=== PATIENT | female | born 1995 | race African-American/Black ===

== ENCOUNTER 2017-07-29 11:03 | Emergency (ER) | payer BC ==
[2017-07-29 11:07] VITALS: BP 121/79; BMI 36.6
--- NOTE | 2017-07-29 11:37 | DR.GENAD ---
HPI - PCP Primary Care Physician: zahira - HPI Comment HPI Comment: HISTORY BELOW. - Complaint/Symptoms Chief Complaint Doctors Comments: VAGINAL PAIN AND RASH AND DYSURIA, EXPOSE TO STD. NO FEVER. USE YEAST MED WITHOUT RELIEF. Chief Complaint:: patient stated for the past couple of days she has been having vaginal pain and burning when she urinates. - Nurses notes reviewed Nurses Notes Review: Yes - Source History Provided: Patient - Mode of Arrival Mode of Arrival: Ambulatory - Timing Onset of Chief Complaint: 07/27/17 Came on: Suddenly - Duration Duration: Constant Duration: Days - Severity Severity: Moderate PMH - PMH Past Medical History: Yes Past Medical History: Diabetes Past Surgical History: Yes Past Surgical History Comment: lymp nodes removed from under chin - Family History History of Family Medical Conditions: No - Social History Does patient currently use any type of tobacco product: No Have you used tobacco products in the last 12 months: No Type of Tobacco Use: None Alcohol Use: None Do you use any recreational Drugs:: No Lives With: Family Lives Where: Home - infectious screening In the last 2 months have you had wt loss of >10#?: NO Have you had fever, night sweats or hemotysis?: No Have you traveled outside the country in the last 6 months?: No Isolation: Standard ROS - Review of Systems Constitutional: No Symptoms Reported Eyes: No Symptoms Reported ENTM: No Symptoms Reported Respiratoy: No Symptoms Reported Cardiovascular: No Symptoms Reported Gastrointestinal/Abdominal: No Symptoms Reported Genitourinary: Pain, Other (VAGINAL RASH AND PAIN.) Neurological: No Symptoms Reported Musculoskeletal: No Symptoms Reported Integumentary: No Symptoms Reported Hematologic/Lymphatic: No Symptoms Reported Endocrine: No Symptoms Reported All Other Systems: Reviewed and Negative PE - Vital Signs Vitals: Temperature 98.5 F Pulse Rate 121 Respiratory Rate 16 Blood Pressure 121/79 O2 Sat by Pulse Oximetry 100 - General Limitations: No Limitations General Appearance: Alert - Head Head Exam: Normal Inspection - Eyes Eye exam: Normal Appearance - ENT ENT Exam: Normal External Ear Exam External Ear Exam: Normal External Inspection TM/Canal Exam: Bilateral Normal Mouth Exam: Normal Inspection Throat Exam: Normal Inspection - Neck Neck Exam: Normal Inspection - Chest Chest Inspection: Symmetric Chest Wall Rise - Respiratory Respiratory Exam: Normal Lung Sounds Bilat Respiratory Exam: Bilateral Clear to Auscultation - Cardiovascular Cardiovascular Exam: Regular Rate, Normal Rhythm, Normal Heart Sounds - Abdominal Exam Abdominal Exam: Normal Bowel Sounds, Soft, Tenderness - Extremities Extremities Exam: Normal Inspection, Tenderness - Back Back Exam: Normal Inspection - Neurologic Neurological Exam: Alert, Oriented X3 - Psychiatric Psychiatric Exam: Normal Affect, Normal Mood - Skin Skin Exam: Normal Color MDM - Additional Information Additional Information Obtained From: Family - Differential Diagnosis Differential Diagnosis: VAGINITIS, STD EXPOSURE, UTI Course - Treatment Treatment: SEE ORDERS - Education/Counseling Education/Counseling: Patient, Family, Education Educated On: Treatment, Diagnosis, Needs for Follow Up ROR - Labs Reviewed Laboratory Results Reviewed?: Yes Laboratory: Specimen Type Clean catch urine 07/29/17 11:46 Urine Color Bloody (YELLOW) 07/29/17 11:46 Urine Appearance Cloudy (CLEAR) 07/29/17 11:46 Urine pH 5.0 (5.0 - 8.0) 07/29/17 11:46 Ur Specific [place] 1.025 (1.000-1.030) 07/29/17 11:46 Urine Protein 3+ (NEGATIVE) 07/29/17 11:46 Urine Glucose (UA) 4+ (NEGATIVE) 07/29/17 11:46 Urine Ketones 3+ (NEGATIVE) 07/29/17 11:46 Urine Occult Blood 5+ (NEGATIVE) 07/29/17 11:46 Urine Nitrite Positive (NEGATIVE) 07/29/17 11:46 Urine Bilirubin 1+ (NEGATIVE) 07/29/17 11:46 Urine Urobilinogen 1+ (NORMAL) 07/29/17 11:46 Ur Leukocyte Esterase 3+ (NEGATIVE) 07/29/17 11:46 Urine RBC Tntc /HPF (NEGATIVE) 07/29/17 11:46 Urine WBC 1015 /HPF (NEGATIVE) 07/29/17 11:46 Ur Squamous Epith Cells Moderate /HPF (NEGATIVE) 07/29/17 11:46 Urine Bacteria Trace /HPF (NEGATIVE) 07/29/17 11:46 Ur Culture Indicated? Yes/culture set up 07/29/17 11:46 Ur C. trach DNA (PCR) Not detected (NOT DETECT) 07/29/17 11:46 U N.gonorrhoeae DNA PCR Not detected (NOT DETECT) 07/29/17 11:46 - Diagnosis Discharge Problem: UTI (urinary tract infection), STD exposure, Vaginitis - Discharge Plan Disposition: 01 HOME, SELF-CARE Condition: Stable Prescriptions: Acetaminophen with Codeine [Tylenol/Codeine #3 300-30 mg] 1 tab PO Q4-6H PRN # 15 tab PRN Reason: Pain Acyclovir [Zovirax] 800 mg PO 5XD #40 tab Ciprofloxacin HCl [CIPRO 500 MG TAB *] 500 mg PO Q12H #20 tab - Follow ups/Referrals Follow ups/Referrals: N[facility],None [Primary Care Provider] - 3 days - Instructions Instructions: Vaginitis, [id number], Urinary Tract Infection, Adult, Easy-to- Read Additional Instructions: RETURN TO ED IF WORSE.
[2017-07-29 12:16] LABS: BILIRUBIN,URINE 1+ (NEGATIVE); BLOOD/HEMOGLOBIN,URINE 5+ (NEGATIVE); GLUCOSE, URINE 4+ (NEGATIVE); KETONES,URINE 3+ (NEGATIVE); LEUKOCYTE ESTERASE ,URINE 3+ (NEGATIVE); NITRITES,URINE POSITIVE (NEGATIVE); PROTEIN,URINE 3+ (NEGATIVE); UROBILINOGEN,URINE 1+ (NORMAL)
[2017-07-29 12:31] LABS: APPEARANCE,URINE CLOUDY (CLEAR); BACTERIA,URINE TRACE /HPF (NEGATIVE); COLOR,URINE BLOODY (YELLOW); RBC,URINE TNTC /HPF (NEGATIVE); SQUAMOUS EPITHELIAL CELL,UR MODERATE /HPF (NEGATIVE)
[2017-07-29] MEDS ORDERED: ZITHROMAX TAB 250 MG PO ONE ×2 (13:42→15:19)
[2017-07-29] MEDS ORDERED: ROCEPHIN VIAL 1 GM IM ONE (13:42)
[2017-07-29] MEDS ORDERED: DIFLUCAN PO ONE (14:19)
[2017-07-29 14:54] LABS: CHLAMYDIA TRACH URINE NOT DETECTED (NOT DETECT)
[2017-07-29] MEDS ORDERED: DIFLUCAN ONE (15:19)
[2017-07-29] MEDS ORDERED: ROCEPHIN VIAL 1 GM ONE (15:19)
[2017-08-04 06:56] LABS: VIRAL CULTURE FINAL POSITIVE
== END 2017-07-29 15:35 | disposition home or self-care (01) ==
LOC: ER 11:11
DX: N76.0 Acute vaginitis (principal); Z20.2 Contact with and (suspected) exposure to infections with a predominantly sexual mode of transmission; N39.0 Urinary tract infection, site not specified; B95.1 Streptococcus, group B, as the cause of diseases classified elsewhere
CPT/HCPCS: 81001; 87086; 87088; 87186; 87252; 87253; 87491; 87591; 96372; 99282; 99283; Q0144; J0696

== ENCOUNTER 2017-08-02 11:12 | Emergency (ER) | payer BC ==
[2017-08-02 11:16] VITALS: BP 128/79; BMI 36.6
[2017-08-02 12:19] LABS: BILIRUBIN,URINE NEGATIVE (NEGATIVE); BLOOD/HEMOGLOBIN,URINE 5+ (NEGATIVE); GLUCOSE, URINE 4+ (NEGATIVE); KETONES,URINE 3+ (NEGATIVE); LEUKOCYTE ESTERASE ,URINE 3+ (NEGATIVE); NITRITES,URINE NEGATIVE (NEGATIVE); PROTEIN,URINE 1+ (NEGATIVE); UROBILINOGEN,URINE NORMAL (NORMAL)
[2017-08-02 12:29] LABS: APPEARANCE,URINE HAZY (CLEAR); BACTERIA,URINE 1+ /HPF (NEGATIVE); COLOR,URINE YELLOW (YELLOW); SQUAMOUS EPITHELIAL CELL,UR FEW /HPF (NEGATIVE)
[2017-08-02] MEDS ORDERED: TORADOL 60 MG VIAL IM ONE (13:04)
[2017-08-02] MEDS ORDERED: TORADOL 60 MG VIAL ONE (13:06)
--- NOTE | 2017-08-02 13:08 | DR.GENAD ---
HPI - PCP Primary Care Physician: ANDREEA LAUREN - Complaint/Symptoms Chief Complaint Doctors Comments: Patient states she has been on medicines for UTI but nothing is helping. She is burning when she urinates. States she has a rash in her groin and she is taking medicine for Herpes and yeast infection for the past 3-4 days and is still burning. States she is a diabetic and she does not check her glucose. Her mother states she has not been complaint with her medicines. States she went to [facility] and the results from her Herpes was not in and she was told she could stop the acyclovir if her test was negataive. She denies fever or chills, hematuria or diarrhea. she has been taking her pain pills but continues to hurt when she urinate. Chief Complaint:: PATIENT HAS A BAD UTI AND HAS BEEN ON MEDICATIONS BUT IT SEEMS LIKE NOTHING IS HELPING. - Nurses notes reviewed Nurses Notes Review: Yes - Source History Provided: Patient - Mode of Arrival Mode of Arrival: Ambulatory - Timing Onset of Chief Complaint: 07/29/17 Came on: Gradually - Duration Duration: Constant How lon Duration: Days - Location Location: pelvic pain - Severity Severity: Moderate - Modifying Factors Worsens:: urinating Improves:: nothing PMH - PMH Past Medical History: Yes Past Medical History: Diabetes Past Surgical History: Yes Surgical History: Other - Family History History of Family Medical Conditions: Yes Family Medical History: [place] - Social History Does patient currently use any type of tobacco product: No Have you used tobacco products in the last 12 months: No Type of Tobacco Use: None Does any household member use tobacco: No Alcohol Use: None Do you use any recreational Drugs:: No Lives With: Family Lives Where: Home - infectious screening In the last 2 months have you had wt loss of >10#?: NO Have you had fever, night sweats or hemotysis?: No Have you traveled outside the country in the last 6 months?: No Isolation: Standard ROS - Review of Systems Constitutional: No Symptoms Reported. negative: See HPI, Chills, Diaphoresis, Fever, Malaise, Weakness, Irritable, Fatigue, Loss of Appetite, Other Eyes: No Symptoms Reported ENTM: No Symptoms Reported Respiratoy: No Symptoms Reported Cardiovascular: No Symptoms Reported. negative: See HPI, Chest Pain, Edema, Palpitations, Syncope, Cyanosis, Skin Mottling, Other Gastrointestinal/Abdominal: No Symptoms Reported Genitourinary: Discharge, Dysuria, Frequency, Pain. negative: No Symptoms Reported, See HPI, Hematuria, Bleeding, Other Neurological: No Symptoms Reported Musculoskeletal: No Symptoms Reported Integumentary: No Symptoms Reported Hematologic/Lymphatic: No Symptoms Reported Endocrine: No Symptoms Reported Psychiatric: No Symptoms Reported PE - Vital Signs Vitals: Pulse Rate 105 Respiratory Rate 20 Blood Pressure 128/79 O2 Sat by Pulse Oximetry 98 - General Limitations: No Limitations General Appearance: Alert, In Distress (mild) - Head Head Exam: Normal Inspection, Atraumatic, Normocephalic - Eyes Eye exam: Normal Appearance, PERRL, EOMI. negative: Scleral Icterus, Conjunctival Injection, Nystagmus, Miosis, Mydrasis, Periorbital Swelling, Periorbital Tenderness, Other - ENT ENT Exam: Normal Exam, Normal Oropharynx, Normal External Ear Exam, Mucous Membranes Moist, TM's Normal Bilaterally External Ear Exam: Normal External Inspection TM/Canal Exam: Bilateral Normal Nose Exam: Normal Nose Exam Mouth Exam: Normal Inspection Throat Exam: Normal Inspection - Neck Neck Exam: Normal Inspection, Full ROM, Trachea Midline - Chest Chest Inspection: Normal Inspection, Symmetric Chest Wall Rise - Respiratory Respiratory Exam: Normal Lung Sounds Bilat. negative: Accessory Muscle Use, Chest Wall Tenderness, Prolonged Expiratory Phase, Respiratory Distress, Stridor , Other Respiratory Exam: Bilateral Clear to Auscultation - Cardiovascular Cardiovascular Exam: Regular Rate, Normal Rhythm, Normal Heart Sounds - Abdominal Exam Abdominal Exam: Normal Inspection, Normal Bowel Sounds, Soft. negative: Distention, Tenderness, Guarding, Rebound, Rigidity, Dimnished Bowel Sounds, Hyperactive Bowel Sounds, Hypoactive Bowel Sounds, Organomegaly, Trauma, Incision, Ascites, Mass, Bruit, Pulsatile Mass, Hernia, Other Abdominal Tenderness: negative: RUQ, RLQ, LUQ, LLQ, Epigastrium, Suprapubic, Diffuse, Mild, Moderate, Severe, Other - Extremities Extremities Exam: Normal Inspection, Full ROM, Normal Capillary Refill. negative: Tenderness, Edema, Joint Swelling, Calf Tenderness, Other - Back Back Exam: Normal Inspection, Full ROM. negative: Tenderness, (R) CVA Tenderness, (L) CVA Tenderness, Muscle Spasm, Paraspinal Tenderness, Vertebral Tenderness, Rashes, (R) Sciatic Notch Tenderness, (L) Sciatic Notch Tendern, (R ) Straight Leg Raise, (L) Straight Leg Raise, Other - Neurologic Neurological Exam: Alert, Oriented X3, CN II-XII Intact, Normal Gait, Reflexes Normal - Psychiatric Psychiatric Exam: Normal Affect, Normal Mood - Skin Skin Exam: Warm, Dry, Intact, Normal Color ROR - Labs Reviewed Laboratory Results Reviewed?: Yes (all labs results reviewed and discussed with patient and mother) Laboratory: POC Glucose (mg/dL) 202 mg/dL (65-99) H 08/02/17 13:01 Specimen Type Clean catch urine 08/02/17 12:08 Urine Color Yellow (YELLOW) 08/02/17 12:08 Urine Appearance Hazy (CLEAR) 08/02/17 12:08 Urine pH 5.0 (5.0 - 8.0) 08/02/17 12:08 Ur Specific [place] 1.020 (1.000-1.030) 08/02/17 12:08 Urine Protein 1+ (NEGATIVE) 08/02/17 12:08 Urine Glucose (UA) 4+ (NEGATIVE) 08/02/17 12:08 Urine Ketones 3+ (NEGATIVE) 08/02/17 12:08 Urine Occult Blood 5+ (NEGATIVE) 08/02/17 12:08 Urine Nitrite Negative (NEGATIVE) 08/02/17 12:08 Urine Bilirubin Negative (NEGATIVE) 08/02/17 12:08 Urine Urobilinogen Normal (NORMAL) 08/02/17 12:08 Ur Leukocyte Esterase 3+ (NEGATIVE) 08/02/17 12:08 Urine RBC 11-25 /HPF (NEGATIVE) 08/02/17 12:08 Urine WBC 20-25 /HPF (NEGATIVE) 08/02/17 12:08 Ur Squamous Epith Cells Few /HPF (NEGATIVE) 08/02/17 12:08 Urine Bacteria 1+ /HPF (NEGATIVE) 08/02/17 12:08 Ur Culture Indicated? Yes/culture set up 08/02/17 12:08 - Diagnosis Discharge Problem: UTI (urinary tract infection), Vaginitis Diabetes mellitus Qualifiers: Diabetes mellitus type: type 2 - Discharge Plan Disposition: HOME, SELF-CARE Condition: Stable Prescriptions: Phenazopyridine HCl [Pyridium] 200 mg PO BID PRN #14 tablet PRN Reason: - Follow ups/Referrals Follow ups/Referrals: CHARLOTTE LAUREN [Primary Care Provider] - 3 days - Instructions Instructions: Vaginitis, [id number], Urinary Tract Infection, Adult, Type 2 Diabetes Mellitus, Adult, [id number]
== END 2017-08-02 13:29 | disposition home or self-care (01) ==
LOC: ER 11:20
DX: N39.0 Urinary tract infection, site not specified (principal); N76.0 Acute vaginitis; E11.9 Type 2 diabetes mellitus without complications
CPT/HCPCS: 81001; 87086; 96372; 99282; 99283; J1885

== ENCOUNTER 2017-08-13 00:12 | Inpatient (IN) | payer BC ==
--- NOTE | 2017-08-13 00:46 | DR.GENAD ---
HPI - PCP Primary Care Physician: MARKO - HPI Comment HPI Comment: WORSE TODAY. - Complaint/Symptoms Chief Complaint Doctors Comments: PAIN AND SWELLING RIGHT LEG TIMES 10 TO 11 DAYS. Chief Complaint:: RLE PAIN, SWELLING FOR LAST 1 1/2 WK Self Treatment fo Chief Complaint: ICE PACKS - Nurses notes reviewed Nurses Notes Review: Yes - Source History Provided: Patient - Mode of Arrival Mode of Arrival: Ambulatory - Timing Onset of Chief Complaint: 08/03/17 Came on: Suddenly - Duration Duration: Constant Duration: Days - Severity Severity: Moderate PMH - PMH Past Medical History: Yes Past Medical History: Diabetes Past Surgical History: No Surgical History: Other - Family History History of Family Medical Conditions: Yes Family Medical History: [place] - Social History Does patient currently use any type of tobacco product: No Have you used tobacco products in the last 12 months: No Type of Tobacco Use: None Does any household member use tobacco: No Alcohol Use: None Do you use any recreational Drugs:: No Lives With: Family Lives Where: Home - infectious screening Have you traveled outside the country in the last 6 months?: No Isolation: Standard ROS - Review of Systems Constitutional: No Symptoms Reported Eyes: No Symptoms Reported ENTM: No Symptoms Reported Respiratoy: No Symptoms Reported Cardiovascular: Edema (RT LEG/CALF) Gastrointestinal/Abdominal: No Symptoms Reported Genitourinary: No Symptoms Reported Neurological: No Symptoms Reported Musculoskeletal: Right, Leg (CALF) Integumentary: No Symptoms Reported Hematologic/Lymphatic: No Symptoms Reported Endocrine: No Symptoms Reported All Other Systems: Reviewed and Negative PE - Vital Signs Vitals: Temperature 97.6 F Pulse Rate 92 Respiratory Rate 16 Blood Pressure 115/81 O2 Sat by Pulse Oximetry 97 - General Limitations: No Limitations General Appearance: Alert - Head Head Exam: Normal Inspection - Eyes Eye exam: Normal Appearance - ENT ENT Exam: Normal External Ear Exam External Ear Exam: Normal External Inspection TM/Canal Exam: Bilateral Normal Nose Exam: Normal Nose Exam Mouth Exam: Normal Inspection Throat Exam: Normal Inspection - Neck Neck Exam: Trachea Midline - Chest Chest Inspection: Symmetric Chest Wall Rise - Respiratory Respiratory Exam: Normal Lung Sounds Bilat, Chest Wall Tenderness Respiratory Exam: Bilateral Clear to Auscultation - Cardiovascular Cardiovascular Exam: Regular Rate, Normal Rhythm, Normal Heart Sounds - Abdominal Exam Abdominal Exam: Normal Bowel Sounds, Soft, Tenderness - Extremities Extremities Exam: Tenderness (LT CALF SWOLLEN AND TENDER.) - Back Back Exam: Normal Inspection - Neurologic Neurological Exam: Alert, Oriented X3, CN II-XII Intact - Psychiatric Psychiatric Exam: Normal Affect, Normal Mood - Skin Skin Exam: Normal Color MDM - Differential Diagnosis Differential Diagnosis: DVT, PULMONARY EMBOLISM, MUSCULOSKELETAL PAIN, BAKERS CYST Course - Treatment Treatment: SEE ORDERS. HEPARIN DRIP PER PROTOCOL. XARELTO PO IN ED. - Education/Counseling Education/Counseling: Patient, Education Educated On: Treatment, Diagnosis, Needs for Follow Up ROR - Labs Reviewed Laboratory Results Reviewed?: Yes Result Diagrams: 08/14/17 05:20 08/14/17 05:20 Laboratory: WBC 18.2 X10^3/uL (3.6-10.0) H 08/13/17 00:53 RBC 7.12 X10^6/uL (3.5-5.4) H 08/13/17 00:53 Hgb 12.5 g/dL (12.0-16.0) 08/13/17 00:53 Hct 38.6 % (36.0-47.0) 08/13/17 00:53 MCV 54.2 fL (80.0-100.0) L 08/13/17 00:53 MCH 17.5 pg (27.0-34.0) L 08/13/17 00:53 MCHC 32.3 g/dL (33.0-35.0) L 08/13/17 00:53 RDW 19.1 % (11.6-16.5) H 08/13/17 00:53 Plt Count 324 X10^3/uL (150.0-450.0) 08/13/17 00:53 Plt Count Comment Adequate (ADEQUATE) 08/13/17 00:53 MPV 8.8 fL (7.4-11.0) 08/13/17 00:53 Neut % 66.0 % (42.0-75.0) 08/13/17 00:53 Lymph % 24.4 % (21.0-51.0) 08/13/17 00:53 [place] % 7.8 % (0.0-13.0) 08/13/17 00:53 Eos % 1.3 % (0.9-2.9) 08/13/17 00:53 Baso % 0.5 % (0.2-1.0) 08/13/17 00:53 Neut # 12.0 x10^3/uL (2.2-4.8) H 08/13/17 00:53 Lymph # 4.4 X10^3/uL (1.3-2.9) H 08/13/17 00:53 [place] # 1.4 x10^3/uL (0.3-0.8) H 08/13/17 00:53 Eos # 0.2 x10^3/uL (0.0-0.2) 08/13/17 00:53 Baso # 0.1 X10^3/uL (0.0-0.1) 08/13/17 00:53 Absolute Nucleated RBC 0.0 /100WBC 08/13/17 00:53 Plt Morphology Comment Normal (NORMAL) 08/13/17 00:53 RBC Morphology Abnormal (NORMAL) A 08/13/17 00:53 Hypochromasia 2+ A 08/13/17 00:53 Anisocytosis 2+ A 08/13/17 00:53 Microcytosis 2+ A 08/13/17 00:53 Target Cells Noted 08/13/17 00:53 D-Dimer > 5000 ng/mL (0-400) H* 08/13/17 00:53 - XRAY XRAY Interpreted by: Radiologist XRAY Findings: REPORT DISCUSS WITH PATIENT. - Diagnosis Discharge Problem: Acute deep vein thrombosis (DVT) of distal end of left lower extremity Pulmonary embolism Qualifiers: Pulmonary embolism type: other Chronicity: acute Acute cor pulmonale presence: without acute cor pulmonale Qualified Code(s): I26.99 - Other pulmonary embolism without acute cor pulmonale - Discharge Plan Disposition: 09 ADMITTED INPATIENT Condition: Stable - Follow ups/Referrals - Instructions
[2017-08-13 01:02] LABS: BASOPHILS # (AUTO) 0.1 X10^3/uL (0.0-0.1); BASOPHILS % (AUTO) 0.5 % (0.2-1.0); EOSINOPHILS # (AUTO) 0.2 x10^3/uL (0.0-0.2); EOSINOPHILS % (AUTO) 1.3 % (0.9-2.9); HEMATOCRIT 38.6 % (36.0-47.0); HEMOGLOBIN 12.5 g/dL (12.0-16.0); LYMPHOCYTES # (AUTO) 4.4 X10^3/uL (1.3-2.9); LYMPHOCYTES % (AUTO) 24.4 % (21.0-51.0); MEAN CORPUSCULAR HEMOGLOBIN 17.5 pg (27.0-34.0); MEAN CORPUSCULAR HGB CONC 32.3 g/dL (33.0-35.0); MEAN CORPUSCULAR VOLUME 54.2 fL (80.0-100.0); MEAN PLATELET VOLUME 8.8 fL (7.4-11.0); MONOCYTES # (AUTO) 1.4 x10^3/uL (0.3-0.8); MONOCYTES % (AUTO) 7.8 % (0.0-13.0); PLATELET COUNT 324 X10^3/uL (150.0-450.0); RED BLOOD COUNT 7.12 X10^6/uL (3.5-5.4); RED CELL DISTRIBUTION WIDTH 19.1 % (11.6-16.5); WHITE BLOOD COUNT 18.2 X10^3/uL (3.6-10.0)
[2017-08-13 01:11] LABS: ANISOCYTOSIS 2+; HYPOCHROMASIA 2+; MICROCYTOSIS 2+; PLATELET MORPHOLOGY COMMENT NORMAL (NORMAL); TARGET CELLS NOTED
[2017-08-13] MEDS ORDERED: NS 100 ML IV 100 ML IV ONE (01:39)
--- NOTE | 2017-08-13 02:30 | CT ---
EXAM: CTA CHEST WITH CONTRAST INDICATION: Elevated D-dimer COMPARISION: No priors for comparison TECHNIQUE: Spiral CT of the chest was performed with and without contrast. 3D reconstructions in the axial and p camille-coronal planes were obtained. The patient received intravenous contrast without adverse reaction . FINDINGS: The heart size is normal. There is a small pulmonary emboli identified in the central division of the right main pulmonary artery which extends into the lower lobe branches. The filling defect is nonocc lusive which could indicate a chronic pulmonary emboli. No left-sided filling defects are identified. . The aorta is normal in caliber. No evidence of dissection or aneurysm. No mediastinal or hilar mass or adenopathy. The lungs are clear. No evidence of bullous disease or pulmonary fibrosis. No lung mass, consolidatio n, or suspicious pulmonary nodule. No pleural effusion or pneumothorax identified. The regional skele ton is intact. IMPRESSION: There is a small nonocclusive pulmonary emboli at the central bifurcation of the right main pulmonary artery which extends into the lower lobe branches. The filling defect is nonocclusive which may be a ssociated with chronic pulmonary emboli. Reported By:
[2017-08-13] MEDS: XARELTO PO SCH ×3 (02:52→20:27)
[2017-08-13] MEDS ORDERED: PHARMACY CONSULT - DOSE _____ XX SCH (03:00)
[2017-08-13] MEDS ORDERED: XARELTO PO NR (03:00)
[2017-08-13] MEDS ORDERED: HEPARIN SODIUM INJ 5000 UNITS ONE (03:15)
[2017-08-13] MEDS ORDERED: MORPHINE SULFATE INJ 4 MG IVP PRN (03:16)
[2017-08-13] MEDS ORDERED: ZOFRAN INJ 4 MG VIAL IVP PRN (03:16)
[2017-08-13] MEDS: HEPARIN SODIUM IN D5W 25,000 UNITS/500 ML BAG IV PRN (03:54)
[2017-08-13] MEDS: NS 1000 ML 1,000 ML IV SCH (04:40)
[2017-08-13 05:03] VITALS: BMI 34.0
[2017-08-13 05:05] LABS: ERYTHROCYTE SEDIMENTATION RATE 21 MM/HOUR (0-20)
[2017-08-13 06:54] LABS: BILIRUBIN,URINE NEGATIVE (NEGATIVE); BLOOD/HEMOGLOBIN,URINE 4+ (NEGATIVE); GLUCOSE, URINE 4+ (NEGATIVE); KETONES,URINE NEGATIVE (NEGATIVE); LEUKOCYTE ESTERASE ,URINE NEGATIVE (NEGATIVE); NITRITES,URINE NEGATIVE (NEGATIVE); PROTEIN,URINE 1+ (NEGATIVE); UROBILINOGEN,URINE NORMAL (NORMAL)
[2017-08-13 07:13] LABS: APPEARANCE,URINE HAZY (CLEAR); BACTERIA,URINE TRACE /HPF (NEGATIVE); COLOR,URINE YELLOW (YELLOW); SQUAMOUS EPITHELIAL CELL,UR FEW /HPF (NEGATIVE)
[2017-08-13] MEDS: SNACK - Diabetic Appropriate PO SCH ×2 (08:29→20:27)
[2017-08-13 09:11] LABS: ALANINE AMINOTRANSFERASE 27 Units/L (12-78); ALBUMIN 2.8 g/dL (3.4-5.0); ALKALINE PHOSPHATASE 106 Units/L (46-116); ASPARTATE AMINO TRANSFERASE 32 Units/L (15-37); BLOOD UREA NITROGEN 7 mg/dL (7-18); CALCIUM 8.9 mg/dL (8.5-10.1); CARBON DIOXIDE 23.9 mmol/L (21-32); CHLORIDE 101 mmol/L (98-107); COR CA(FOR HYPOALB) 9.9 mg/dL (8.5-10.1); COR NA(FOR HYPERGLY) 142 mmol/L (136-145); CREATININE 0.88 mg/dL (0.55-1.02); SODIUM 134 mmol/L (136-145); TOTAL PROTEIN 7.4 g/dL (6.4-8.2); eGFR BLACK RACES > 60 (>60); eGFR NON BLACK RACES > 60 (>60)
--- NOTE | 2017-08-13 09:45 | VAS ---
HISTORY: Elevated D-dimer and right lower extremity pain and edema Study: Doppler ultrasound of the deep veins of the right lower extremity Comparison: None TECHNIQUE: Multiple mcdowell scale and color flow Doppler images of the deep venous system were obtained of the Right lower extremity. FINDINGS: The deep venous system of the right lower extremity was evaluated from the level of the common femora l vein through the popliteal vein. Normal color flow and augmentation can be observed. In addition, normal compression is seen throughout the deep venous system. IMPRESSION: 1. Negative for DVT. Reported By:
--- NOTE | 2017-08-13 10:29 | DR.H&P ---
H&P - History & Physical for Day of: H&P Date: 08/13/17 - Chief Complaint Chief Complaint: RIGHT LEG PAIN, SHORT OF BREATH - Allergies Allergies/Adverse Reactions: Allergies Allergy/AdvReac Type Severity Reaction Status Date / Time No Known Drug Allergies Allergy Verified 08/13/17 00:21 - History of Present Illness History of Present Illness: A 22 YEAR OLD PATIENT OF [facility] WHO PRESENTED TO THE EMERGENCY ROOM WITH COMPLAINTS OF RIGHT LEG PAIN AND SWELLING. PATIENT REPORTS THAT SYMPTOMS BEGAN 10 DAYS AGO. ASSOCIATED SYMPTOMS ARE SHORTNESS OF BREATH. ON EXAMINATION, WERE NOTED CLEAR TO AUSCULTATION. ABDOMEN SOFT, ROUND, AND NON-TENDER WITH NORMAL BOWEL SOUNDS NOTED IN ALL QUADRANTS. RIGHT LOWER LEG/CALF IS NOTED WITH EDEMA AND TENDERNESS. PATIENT REPORTS USING ICE PACKS AT HOME FOR PAIN. SHE DENIES RELIEF OF PAIN. ON ARRIVAL, VITAL SIGNS WERE 97.6-92-16-97%-115/81. LABS AND CHEST CT WERE OBTAINED. ABNORMAL LAB VALUES INCLUDE THE FOLLOWING: WBC 18.2, RBC 7.12, D-DIMER >5000, ESR 21, CRP 16.80, SODIUM 134, GLUCOSE 428, ALBUMIN 2.8, GLOBULIN 4.6. URINALYSIS REPORTED RBC 10-12, WBC 3-5, OCCULT BLOOD 4+, URINE GLUCOSE 4+, URINE PROTEIN 1+. A HYPER COAG PANEL WAS DRAWN AND SENT OUT. A CTA OF THE CHEST WAS OBTAINED AND REPORTED A SMALL NONOCCLUSIVE PLUMONARY EMBOLI AT THE CENTRAL BIFURCATION OF THE RIGHT MAIN PULMONARY ARTERY WHICH EXTENDS TO THE LOWER LOBE BRANCHES. THE FILLING DEFECT IS NONOCCLUSIVE WHICH MAY BE ASSOCIATED WITH CHRONIC PULMONARY EMBOLI. LUNGS ARE CLEAR. PATIENT WAS STARTED ON A HEPARIN DRIP, XARELTO 15MG PO BID, AND NS AT [facility] IN THE ER. WE ADMITTED HER FOR FURTHER TREATMENT AND EVALUATION. WE PLANNED TO FOLLOW UP WITH LABS AND A VENOUS DOPPLER. WE WILL CONTINUE TO MONITOR PATIENT. - Past Medical History Past Medical History: Anemia, Asthma, Diabetes, Sleep Apnea - Past Surgical History Surgical History: Other Additional Surgical History: LYMPH NODE REMOVED FROM UNDER CHIN - Family History Family Medical History: Diabetes Mellitus, [place], Hypertension - Social History Does patient currently use any type of tobacco product: No Have you used tobacco products in the last 12 months: No Type of Tobacco Use: None Does any household member use tobacco: No Alcohol Use: None Drug Use: None - Medications Home Medications: Doxycycline Hyclate [Doxycycline Hyclate] 1 cap PO BID 08/13/17 [History Confirmed 08/13/17] - Review of Systems Constitutional: No Symptoms Reported Eyes: No Symptoms Reported ENT: No Symptoms Reported Respiratory: Shortness of Breath Cardiovascular: Edema (RIGHT LEG/CALF ) Gastrointestinal: No Symptoms Reported Genitourinary: No Symptoms Reported Musculoskeletal: Leg Pain (RIGHT LEG PAIN AND EDEMA ) Skin: No Symptoms Reported Neurological: No Symptoms Reported - Physical Exam Vital Signs: Temperature 97.7 F Pulse Rate [Apical] 106 Pulse Rate 92 Respiratory Rate 24 Blood Pressure [Left Arm] 95/53 Blood Pressure 115/81 O2 Sat by Pulse Oximetry 100 Oriented: Normal Eyes: Normal Ear: Normal Nose: Normal Throat: Normal Respiratory: Clear Throughout Cardiovascular: Edema (RIGHT LEG ) : Normal Auscultation: Bowel Sounds: Normal Palpation: Normal Tenderness: Normal Skin: Normal Musculoskeletal: Normal Psychiatric: Normal Mood Description: Calm Affect: Normal Speech Pattern: Clear - Assessment/Plan (1) Pulmonary embolism Qualifiers: Pulmonary embolism type: other Chronicity: acute Acute cor pulmonale presence: without acute cor pulmonale Qualified Code(s): I26.99 - Other pulmonary embolism without acute cor pulmonale Status: Acute Plan: HEPARIN DRIP, XARELTO 15MG PO BID, CONTINUE TO MONITOR (2) Acute pain of right lower extremity Status: Acute Plan: VENOUS DOPPLER, CONTINUE TO MONITOR
[2017-08-13] MEDS: LEVAQUIN PREMIX IV 500 MG 500 MG/100 ML BAG IV SCH (12:56)
[2017-08-13] MEDS: HumuLIN R SUBCUT PRN ×3 (12:57→20:25)
[2017-08-13] MEDS ORDERED: SNACK - Diabetic Appropriate PO SCH (20:00)
[2017-08-13] MEDS ORDERED: XARELTO PO SCH (21:00)
[2017-08-14] MEDS: HEPARIN SODIUM IN D5W 25,000 UNITS/500 ML BAG IV PRN (05:42)
[2017-08-14 06:08] LABS: BASOPHILS # (AUTO) 0.1 X10^3/uL (0.0-0.1); BASOPHILS % (AUTO) 0.7 % (0.2-1.0); EOSINOPHILS # (AUTO) 0.3 x10^3/uL (0.0-0.2); EOSINOPHILS % (AUTO) 1.9 % (0.9-2.9); HEMATOCRIT 36.1 % (36.0-47.0); HEMOGLOBIN 11.4 g/dL (12.0-16.0); LYMPHOCYTES # (AUTO) 5.3 X10^3/uL (1.3-2.9); LYMPHOCYTES % (AUTO) 34.2 % (21.0-51.0); MEAN CORPUSCULAR HEMOGLOBIN 17.4 pg (27.0-34.0); MEAN CORPUSCULAR HGB CONC 31.6 g/dL (33.0-35.0); MEAN PLATELET VOLUME 9.5 fL (7.4-11.0); MONOCYTES # (AUTO) 1.1 x10^3/uL (0.3-0.8); MONOCYTES % (AUTO) 7.4 % (0.0-13.0); NEUTROPHILS # (AUTO) 8.6 x10^3/uL (2.2-4.8); NEUTROPHILS % (AUTO) 55.8 % (42.0-75.0); PLATELET COUNT 313 X10^3/uL (150.0-450.0); RED BLOOD COUNT 6.57 X10^6/uL (3.5-5.4); RED CELL DISTRIBUTION WIDTH 19.3 % (11.6-16.5); WHITE BLOOD COUNT 15.4 X10^3/uL (3.6-10.0)
[2017-08-14 06:23] LABS: ALANINE AMINOTRANSFERASE 26 Units/L (12-78); ALBUMIN 2.8 g/dL (3.4-5.0); ALKALINE PHOSPHATASE 90 Units/L (46-116); ASPARTATE AMINO TRANSFERASE 24 Units/L (15-37); BLOOD UREA NITROGEN 7 mg/dL (7-18); CALCIUM 8.9 mg/dL (8.5-10.1); CARBON DIOXIDE 26.2 mmol/L (21-32); CHLORIDE 105 mmol/L (98-107); COR CA(FOR HYPOALB) 9.9 mg/dL (8.5-10.1); COR NA(FOR HYPERGLY) 140 mmol/L (136-145); CREATININE 0.64 mg/dL (0.55-1.02); SODIUM 139 mmol/L (136-145); TOTAL PROTEIN 7.5 g/dL (6.4-8.2); eGFR BLACK RACES > 60 (>60); eGFR NON BLACK RACES > 60 (>60)
[2017-08-14] MEDS: NS 1000 ML 1,000 ML IV SCH (06:26)
[2017-08-14 07:04] LABS: PLATELET MORPHOLOGY COMMENT NORMAL (NORMAL)
[2017-08-14 07:05] LABS: HYPOCHROMASIA 3+
[2017-08-14 07:06] LABS: ANISOCYTOSIS 1+; MICROCYTOSIS 2+; TARGET CELLS NOTED
[2017-08-14] MEDS: XARELTO PO SCH ×2 (08:55→21:13)
[2017-08-14] MEDS: LEVAQUIN PREMIX IV 500 MG 500 MG/100 ML BAG IV SCH (08:56)
--- NOTE | 2017-08-14 09:45 | PCM.PROG ---
Progress Note - Progress Note for Day of Date: 08/14/17 - Subjective Subjective: WAS ADMITTED FOR AN ACUTE PULMONARY EMOBLISM AND SUSPECTED RLE EVT. TODAY, SHE IS ALERT AND ORIENTED, LYING IN BED ON MORNING ROUNDS. SHE CONTINUES WITH COMPLAINTS OF SHORTNESS OF BREATH AND RLE ACHING. ON EXAMINATION , LUNGS ARE NOTED CLEAR TO AUSCULTATION. ABDOMEN IS ROUND, SOFT, AND NON-TENDER WITH NORMAL BOWEL SOUNDS NOTED IN ALL QUADRANTS. EDEMA IN LOWER EXTREMITIES HAS DECREASED SINCE YESTERDAY. SHE CONTINUES ON A HEPARIN DRIP AT THIS TIME. HER VITAL SIGNS THIS MORNING ARE 99.0-70-15-100%-112/74. A CBC AND CMP WERE OBTAINED THIS MORNING. ABNORMAL LAB VALUES INCLUDE THE FOLLOWING: WBC 15.4, RBC 6.57, HGB 11.4, GLUCOSE 140, ALBUMIN 2.8. HYPERCOAG PANEL IS PENDING. YESTERDAY , A VENOUS DOPPLER WAS OBTAINED AND REPORTED NEGATIVE FOR DVT. AN ECHO WAS OBTAINED AND REPORTED AN EJECTION FRACTION OF 62%, OTHERWISE NORMAL. PATIENT WAS STARTED ON LEVAQUIN 500MG IV DAILY, YESTERDAY, DUE TO A RECENT POSITIVE URINE CULTURE. CULTURE GREW STREP AGALACTIAE (GROUP B). TODAY, WE WILL DISCONTINUE THE HEPARIN DRIP. WE WILL CONTINUE XARELTO 15MG PO BID. OTHERWISE, WE PLAN TO FOLLOW UP WITH AM LABS AND CONTINUE TO MONITOR PATIENT. - Past Medical Family Social History Past Med/Fam/Surg Hx: No changes since H&P Allergies: Allergies No Known Drug Allergies Allergy (Verified 08/13/17 00:21) - Review of Systems ROS: No change since H&P - Vital Signs and I&O's Vital Signs: Temperature 99 F Pulse Rate [Apical] 67 Pulse Rate 92 Respiratory Rate 16 Blood Pressure [Left Arm] 104/71 Blood Pressure 115/81 O2 Sat by Pulse Oximetry 98 Intake and Output: Intake & Output 08/11/17 08/12/17 08/13/17 08/14/17 11:59 11:59 11:59 11:59 Intake Total 2211 Balance 2211 - Physical Exam Oriented: Normal Eyes: Normal Ear: Normal Nose: Normal Throat: Normal Respiratory: Normal Cardiovascular: Edema (RIGHT LEG ) : Normal Auscultation: Bowel Sounds: Normal Palpation: Normal Tenderness: Normal Skin: Normal Musculoskeletal: Normal Psychiatric: Normal Mood Description: Calm Affect: Normal Speech Pattern: Clear, Appropriate - Laboratory and Diagnostics Result Diagrams: 08/14/17 05:20 08/14/17 05:20 Labs: Laboratory WBC 15.4 X10^3/uL (3.6-10.0) H 08/14/17 05:20 RBC 6.57 X10^6/uL (3.5-5.4) H 08/14/17 05:20 Hgb 11.4 g/dL (12.0-16.0) L 08/14/17 05:20 Hct 36.1 % (36.0-47.0) 08/14/17 05:20 MCV 55.0 fL (80.0-100.0) L 08/14/17 05:20 MCH 17.4 pg (27.0-34.0) L 08/14/17 05:20 MCHC 31.6 g/dL (33.0-35.0) L 08/14/17 05:20 RDW 19.3 % (11.6-16.5) H 08/14/17 05:20 Plt Count 313 X10^3/uL (150.0-450.0) 08/14/17 05:20 Plt Count Comment Adequate (ADEQUATE) 08/14/17 05:20 MPV 9.5 fL (7.4-11.0) 08/14/17 05:20 Neut % 55.8 % (42.0-75.0) 08/14/17 05:20 Lymph % 34.2 % (21.0-51.0) 08/14/17 05:20 [place] % 7.4 % (0.0-13.0) 08/14/17 05:20 Eos % 1.9 % (0.9-2.9) 08/14/17 05:20 Baso % 0.7 % (0.2-1.0) 08/14/17 05:20 Neut # 8.6 x10^3/uL (2.2-4.8) H 08/14/17 05:20 Lymph # 5.3 X10^3/uL (1.3-2.9) H 08/14/17 05:20 [place] # 1.1 x10^3/uL (0.3-0.8) H 08/14/17 05:20 Eos # 0.3 x10^3/uL (0.0-0.2) H 08/14/17 05:20 Baso # 0.1 X10^3/uL (0.0-0.1) 08/14/17 05:20 Absolute Nucleated RBC 0.0 /100WBC 08/14/17 05:20 Plt Morphology Comment Normal (NORMAL) 08/14/17 05:20 RBC Morphology Abnormal (NORMAL) A 08/14/17 05:20 Hypochromasia 3+ A 08/14/17 05:20 Anisocytosis 1+ A 08/14/17 05:20 Microcytosis 2+ A 08/14/17 05:20 Target Cells Noted 08/14/17 05:20 ESR 21 MM/HOUR (0-20) H 08/13/17 03:35 INR Target Range - 08/13/17 00:53 INR 1.03 (0.8-1.3) 08/13/17 00:53 PTT 87.2 SECONDS (22.9-36.5) H 08/14/17 05:20 PTT Comment - 08/14/17 05:20 D-Dimer > 5000 ng/mL (0-400) H* 08/13/17 00:53 Sodium 139 mmol/L (136-145) 08/14/17 05:20 Corrected Sodium 140 mmol/L (136-145) 08/14/17 05:20 Potassium 3.6 mmol/L (3.5-5.1) 08/14/17 05:20 Chloride 105 mmol/L (98-107) 08/14/17 05:20 Carbon Dioxide 26.2 mmol/L (21-32) 08/14/17 05:20 BUN 7 mg/dL (7-18) 08/14/17 05:20 Creatinine 0.64 mg/dL (0.55-1.02) 08/14/17 05:20 Est GFR (MDRD) Af Amer > 60 (>60) 08/14/17 05:20 Est GFR (MDRD) Non-Af > 60 (>60) 08/14/17 05:20 Glucose 140 mg/dL (65-99) H 08/14/17 05:20 POC Glucose (mg/dL) 150 mg/dL (65-99) H 08/14/17 05:37 Hemoglobin A1c 12.3 % (4.5-6.2) H 08/13/17 10:30 Calcium 8.9 mg/dL (8.5-10.1) 08/14/17 05:20 Corrected Calcium 9.9 mg/dL (8.5-10.1) 08/14/17 05:20 Total Bilirubin 0.50 mg/dL (0.2-1.0) 08/14/17 05:20 AST 24 Units/L (15-37) 08/14/17 05:20 ALT 26 Units/L (12-78) 08/14/17 05:20 Alkaline Phosphatase 90 Units/L (46-116) 08/14/17 05:20 C-Reactive Protein 16.80 mg/L (0-3.0) H 08/13/17 03:35 Total Protein 7.5 g/dL (6.4-8.2) 08/14/17 05:20 Albumin 2.8 g/dL (3.4-5.0) L 08/14/17 05:20 Globulin 4.7 g/dL (2.5-4.5) H 08/14/17 05:20 Albumin/Globulin Ratio 0.6 Ratio (1.1-2.1) L 08/14/17 05:20 Specimen Type Clean catch urine 08/13/17 06:30 Urine Color Yellow (YELLOW) 08/13/17 06:30 Urine Appearance Hazy (CLEAR) 08/13/17 06:30 Urine pH 5.0 (5.0 - 8.0) 08/13/17 06:30 Ur Specific [place] 1.010 (1.000-1.030) 08/13/17 06:30 Urine Protein 1+ (NEGATIVE) 08/13/17 06:30 Urine Glucose (UA) 4+ (NEGATIVE) 08/13/17 06:30 Urine Ketones Negative (NEGATIVE) 08/13/17 06:30 Urine Occult Blood 4+ (NEGATIVE) 08/13/17 06:30 Urine Nitrite Negative (NEGATIVE) 08/13/17 06:30 Urine Bilirubin Negative (NEGATIVE) 08/13/17 06:30 Urine Urobilinogen Normal (NORMAL) 08/13/17 06:30 Ur Leukocyte Esterase Negative (NEGATIVE) 08/13/17 06:30 Urine RBC 10-12 /HPF (NEGATIVE) 08/13/17 06:30 Urine WBC 3-5 /HPF (NEGATIVE) 08/13/17 06:30 Ur Squamous Epith Cells Few /HPF (NEGATIVE) 08/13/17 06:30 Urine Bacteria Trace /HPF (NEGATIVE) 08/13/17 06:30 Ur Culture Indicated? 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
[2017-08-14] MEDS: HumuLIN R SUBCUT PRN ×3 (11:47→21:14)
[2017-08-14] MEDS: TYLENOL 325 MG TAB PO PRN ×2 (11:57→20:30)
[2017-08-14] MEDS: SNACK - Diabetic Appropriate PO SCH (21:12)
[2017-08-15 05:42] LABS: BASOPHILS # (AUTO) 0.1 X10^3/uL (0.0-0.1); BASOPHILS % (AUTO) 0.5 % (0.2-1.0); EOSINOPHILS # (AUTO) 0.3 x10^3/uL (0.0-0.2); HEMATOCRIT 35.3 % (36.0-47.0); HEMOGLOBIN 11.3 g/dL (12.0-16.0); LYMPHOCYTES # (AUTO) 3.9 X10^3/uL (1.3-2.9); LYMPHOCYTES % (AUTO) 30.2 % (21.0-51.0); MEAN CORPUSCULAR HEMOGLOBIN 17.5 pg (27.0-34.0); MEAN CORPUSCULAR VOLUME 54.5 fL (80.0-100.0); MEAN PLATELET VOLUME 9.6 fL (7.4-11.0); MONOCYTES % (AUTO) 7.8 % (0.0-13.0); NEUTROPHILS # (AUTO) 7.7 x10^3/uL (2.2-4.8); NEUTROPHILS % (AUTO) 59.5 % (42.0-75.0); PLATELET COUNT 256 X10^3/uL (150.0-450.0); RED BLOOD COUNT 6.47 X10^6/uL (3.5-5.4); RED CELL DISTRIBUTION WIDTH 19.1 % (11.6-16.5)
[2017-08-15 06:05] LABS: ALANINE AMINOTRANSFERASE 28 Units/L (12-78); ALBUMIN 2.6 g/dL (3.4-5.0); ALKALINE PHOSPHATASE 97 Units/L (46-116); ASPARTATE AMINO TRANSFERASE 23 Units/L (15-37); BLOOD UREA NITROGEN 9 mg/dL (7-18); CALCIUM 8.5 mg/dL (8.5-10.1); CARBON DIOXIDE 24.6 mmol/L (21-32); CHLORIDE 104 mmol/L (98-107); COR CA(FOR HYPOALB) 9.6 mg/dL (8.5-10.1); COR NA(FOR HYPERGLY) 139 mmol/L (136-145); SODIUM 136 mmol/L (136-145); TOTAL PROTEIN 7.2 g/dL (6.4-8.2); eGFR BLACK RACES > 60 (>60); eGFR NON BLACK RACES > 60 (>60)
[2017-08-15] MEDS: NS 1000 ML 1,000 ML IV SCH (06:05)
[2017-08-15 06:30] LABS: HYPOCHROMASIA 2+; MICROCYTOSIS 2+; PLATELET MORPHOLOGY COMMENT NORMAL (NORMAL)
[2017-08-15] MEDS: HumuLIN R SUBCUT PRN ×2 (06:35→11:22)
[2017-08-15] MEDS: XARELTO PO SCH (08:03)
[2017-08-15] MEDS: LEVAQUIN PREMIX IV 500 MG 500 MG/100 ML BAG IV SCH (08:03)
[2017-08-15 10:21] VITALS: BP 106/71
[2017-08-18 06:12] LABS: ANTITHROMBIN III ACTIVITY 112 % (76-128)
[2017-08-18 06:13] LABS: ANTI-NUCLEAR ANTIBODY TEST None Detected (None Detected); APC RESISTANCE 3.51 (>=2.00); PROTEIN C ACTIVITY 131 % (83-168)
[2017-08-18 06:15] LABS: PROTHROMBIN G20210A Negative
== END 2017-08-15 11:50 | disposition home or self-care (01) | DRG 176 ==
LOC: ER 00:12 → ICU 03:09
PROVIDERS: ADMIT Internal Medicine; ATTEND Internal Medicine
DX: I26.99 Other pulmonary embolism without acute cor pulmonale (principal); I82.491 Acute embolism and thrombosis of other specified deep vein of right lower extremity; R06.02 Shortness of breath; M79.604 Pain in right leg; Z79.4 Long term (current) use of insulin; E11.65 Type 2 diabetes mellitus with hyperglycemia; B95.1 Streptococcus, group B, as the cause of diseases classified elsewhere; R79.1 Abnormal coagulation profile
CPT/HCPCS: 36415; 71275; 80053; 81001; 81240; 82615; 82947; 83036; 85025; 85300; 85303; 85306; 85307; 85378; 85597; 85610; 85613; 85635; 85652; 85670; 85730; 85732; 86140; 86308; 93306; 93971; 96365; 96374; 99284; 99285; A4222; J1644; J1815; J1956